=== PATIENT | male | born 1985 | race African-American/Black ===

== ENCOUNTER 2020-10-17 05:31 | Emergency (ER) | payer SELFPAY ==
[2020-10-17] MEDS ORDERED: Aspirin Chewable 81 MG TAB ONE (06:16)
[2020-10-17 06:29] LABS: #Eosinphils 0.1 10x3/uL (0.0-0.5); #Monocytes 0.6 10x3/uL (0.0-1.1); #Neutrophils 4.8 10x3/uL (1.5-8.4); %Basophils 0.3 % (0.0-2.0); %Eosinophils 1.9 % (0.0-6.0); %Lymphocytes 25.1 % (18.0-47.0); %Monocytes 8.2 % (0.0-10.0); %Neutrophils 64.4 % (40.0-75.0); Hemoglobin 12.3 g/dL (13.5-17.5); Mean Corpuscular HGB CONC 32.7 g/dL (32.0-36.0); Mean Corpuscular Hemoglobin 26.7 pg (27.0-33.0); Mean Corpuscular Volume 81.7 fl (81.2-95.1); Mean Platelet Volume 9.8 fl (7.4-10.4); Platelet Count 268 10x3/uL (150-450); RBC Distribution Width 13.1 % (11.5-14.5); White Blood Cell (WBC) Count 7.4 10x3/uL (3.5-10.5)
[2020-10-17 06:44] LABS: ALT (SGPT) 26 U/L (8-55); AST (SGOT) 27 U/L (5-34); Albumin 3.9 g/dL (3.5-5.0); Alkaline Phosphatase 41 U/L (40-110); Anion Gap 10 mmol/L (10-20); BUN (Urea Nitrogen) 10 mg/dL (8.9-20.6); Bilirubin, Total 0.9 mg/dL (0.2-1.2); Calc. Creatinine Clearance 0 mL/min (70-130); Calcium 9.1 mg/dL (7.8-10.44); Carbon Dioxide 27 mmol/L (22-29); Chloride 107 mmol/L (98-107); Globulin 2.9 g/dL (2.4-3.5); Glucose 101 mg/dL (70-105); Potassium 3.8 mmol/L (3.5-5.1); Protein, Total 6.8 g/dL (6.0-8.3); Sodium 140 mmol/L (136-145)
== END 2020-10-17 10:09 | disposition home or self-care (01) ==
LOC: CSHERS 05:31
DX: S60.222A Contusion of left hand, initial encounter (principal); R07.89 Other chest pain; F17.210 Nicotine dependence, cigarettes, uncomplicated
CPT/HCPCS: 36415; 71045; 80053; 84484; 85025; 93005; 93010